=== PATIENT | male | born 1980 | race Caucasian/White ===

== ENCOUNTER 2023-07-11 14:01 | Emergency (ER) | payer OTHER, SELFPAY ==
[2023-07-11 14:04] VITALS: BP 146/99; PULSE 83; RESP 18; TEMP 36.8; O2SAT 99; BMI 25.4
--- NOTE | 2023-07-11 14:26 | ED.WOUNDLAC1 ---
HPI - Wound/Laceration General Chief Complaint: Wound/Laceration Stated Complaint: Laceration Time Seen by Provider: 07/11/23 14:06 Source: patient Mode of arrival: walk-in Limitations: no limitations History of Present Illness HPI narrative: 43-year-old male presents for chief complaint of laceration to his right thumb. It was sustained just before coming into the emergency Department on a sharp piece of metal. His last tetanus shot was about a year ago. No other wounds were sustained. There was some bleeding that was controlled with pressure. Related Data Allergies Allergy/AdvReac Type Severity Reaction Status Date / Time diphenhydramine AdvReac Intermediate Verified 07/11/23 14:04 [From Benadryl] naproxen [From Naprosyn] AdvReac Intermediate Verified 07/11/23 14:04 Review of Systems ROS Narrative A ten point review of systems is negative except as noted above. PFSH PFSH Social History Smoking status: Current every day smoker Exam Narrative Exam Narrative: Nurses note and vital signs reviewed and patient is not hypoxic. General: The patient appears well and in no apparent distress. Patient is resting comfortably on cart. Skin: Warm, dry, no pallor noted. There is no rash noted. Head: Normocephalic, atraumatic Eye: Normal conjunctiva, no drainage Ears, Nose, Mouth, and Throat: oral mucosa is moist. Nares patent. Cardiovascular: Regular Rate and Rhythm Respiratory: Patient is in no distress, no accessory muscle use, lungs are clear to auscultation, no wheezing, rales or rhonchi Back: non-tender GI: soft and nontender Musculoskeletal: the right thumb is examined. On the ulnar side at the IP crease is a superficial nonbleeding 1 cm laceration. IP joint has full range of motion and no other wounds are present. Neurological: A&O, normal speech Psychiatric: Cooperative Constitutional Vital Signs, click to edit/add: Last Vital Signs Temp 98.2 F 07/11/23 14:04 Pulse 83 07/11/23 14:04 Resp 18 07/11/23 14:04 BP 146/99 H 07/11/23 14:04 Pulse Ox 99 07/11/23 14:04 O2 Del Method Room Air 07/11/23 14:04 Course Vital Signs Vital signs: Vital Signs Temperature 98.2 F 07/11/23 14:04 Pulse Rate 83 11/18/23 14:04 Respiratory Rate 18 07/11/23 14:04 Blood Pressure 146/99 H 07/11/23 14:04 Pulse Oximetry 99 07/11/23 14:04 Oxygen Delivery Method Room Air 07/11/23 14:04 Temperature 98.2 F 07/11/23 14:04 Pulse Rate 83 07/11/23 14:04 Respiratory Rate 18 07/11/23 14:04 Blood Pressure 146/99 H 07/11/23 14:04 Pulse Oximetry 99 07/11/23 14:04 Oxygen Delivery Method Room Air 07/11/23 14:04 MDM - Wound/Laceration MDM Narrative Medical decision making narrative: sutures are not indicated. Tetanus is up-to-date. Steri-Strips applied as well as a splint. Splint application checked by me and found be appropriate, he is neurovascularly intact. Differential Diagnosis Differential diagnosis: Likely laceration and avulsion of skin Discharge Plan Discharge Chief Complaint: Wound/Laceration Clinical Impression: Laceration Patient Disposition: Home, Self-Care Time of Disposition Decision: 14:25 Condition: Good Mode of Transportation: Private Vehicle Instructions: Steristrips (ED) Additional Instructions: Do not get Steri-Strips wet and leave splint on for seven days. Stand Alone Forms: Portal Instructions
== END 2023-07-11 14:31 | disposition home or self-care (01) ==
PROVIDERS: Emergency Provider Emergency Medicine
DX: S61.011A Laceration without foreign body of right thumb without damage to nail, initial encounter (principal); W26.9XXA Contact with unspecified sharp object(s), initial encounter; W45.8XXA Other foreign body or object entering through skin, initial encounter; F17.210 Nicotine dependence, cigarettes, uncomplicated
CPT/HCPCS: 99283

== ENCOUNTER 2023-07-25 21:19 | Emergency (ER) | payer OTHER, SELFPAY ==
[2023-07-25 21:37] VITALS: BP 138/88; PULSE 95; RESP 16; TEMP 36.7; O2SAT 96; BMI 27.3
--- NOTE | 2023-07-25 22:08 | XR_ITS ---
[facility] [place] [facility] [id number] Patient Name: TRIPP WALKER MRN: [id number] date: 1980 Sex: M Assigned Patient Location: ER Current Patient Location: ER Accession/Order Number: [id number] Exam Date: 07/25/2023 22:10 Report Date: 07/25/2023 22:29 At the request of: AMRIK MARTINEZ Procedure: XR hand LT min 3V EXAM: XR hand LT min 3V TECHNIQUE: AP, lateral and oblique views left hand HISTORY: dog bite thumb COMPARISON: None. FINDINGS: No fracture or dislocation. Soft tissues are unremarkable. No arthritic changes. No radiopaque foreign body. XR/XR hand LT min 3V IMPRESSION: No acute findings Electronically authenticated by: BRITTANY BURT Date: 07/25/2023 22:29
--- NOTE | 2023-07-25 22:17 | ED.WOUNDLAC1 ---
HPI - Wound/Laceration General Chief Complaint: Wound/Laceration Stated Complaint: Wound/Laceration Time Seen by Provider: 07/25/23 22:08 Mode of arrival: walk-in History of Present Illness HPI narrative: has new puppy. bitten on his left thumb tonight. States puppy was frightened. No weakness or numbness of his thumb Related Data Home Medications Medication Instructions Recorded Confirmed No Known Home Medications 07/25/23 07/25/23 Allergies Allergy/AdvReac Type Severity Reaction Status Date / Time diphenhydramine AdvReac Intermediate Verified 07/25/23 21:42 [From Benadryl] naproxen [From Naprosyn] AdvReac Intermediate Verified 07/25/23 21:42 Review of Systems ROS Status of ROS 10 or more systems reviewed and unremarkable except as noted in history and [facility] Social History Smoking status: Current every day smoker Exam Constitutional Vital Signs, click to edit/add: Last Vital Signs Temp 98.0 F 07/25/23 21:37 Pulse 95 H 07/25/23 21:37 Resp 16 07/25/23 21:37 BP 138/88 07/25/23 21:37 Pulse Ox 96 07/25/23 21:37 O2 Del Method Room Air 07/25/23 21:37 Common normals: no apparent distress, average body habitus, oriented x3, no limitations and healthy appearing Eye Common normals: EOMs intact bilaterally and conjunctivae normal Respiratory Common normals: normal respiratory effort, no retractions and no use of accessory muscles Cardio Common normals: regular rate, regular rhythm, S1 normal heart sound and S2 normal heart sound GI Common normals: Normal to inspection, nondistended, normoactive bowel sounds present, soft to palpation and non-tender Extremity Other: several small puncture wounds left thumb. volar lac with exposure small amount of fat. FROM of the thumb Neuro Common normals: oriented x3, CN's II-XII intact bilaterally, moves all extremities, no focal motor deficits and no sensory deficits noted Psych Appearance: grossly normal Course Vital Signs Vital signs: Vital Signs Temperature 98.0 F 07/25/23 21:37 Pulse Rate 95 H 07/25/23 21:37 Respiratory Rate 16 07/25/23 21:37 Blood Pressure 138/88 07/25/23 21:37 Pulse Oximetry 96 07/25/23 21:37 Oxygen Delivery Method Room Air 07/25/23 21:37 Temperature 98.0 F 07/25/23 21:37 Pulse Rate 95 H 07/25/23 21:37 Respiratory Rate 16 07/25/23 21:37 Blood Pressure 138/88 07/25/23 21:37 Pulse Oximetry 96 07/25/23 21:37 Oxygen Delivery Method Room Air 07/25/23 21:37 MDM - Wound/Laceration MDM Narrative Medical decision making narrative: presents with dog bite left thumb. multiple punctures dorsum of thumb that do not require repair and lac fat pad repaired as above. Imaging Data Chest x-ray: Radiologist's impression: : [facility]:[id number] date: 1980 Sex: M Assigned Patient Location: ER Current Patient Location: ER Accession/Order Number: [id number] Exam Date: 07/25/2023 22:10 Report Date: 07/25/2023 22:29 At the request of: AMRIK MARTINEZ Procedure: XR hand LT min 3V EXAM: XR hand LT min 3V TECHNIQUE: AP, lateral and oblique views left hand HISTORY: dog bite thumb COMPARISON: None. FINDINGS: No fracture or dislocation. Soft tissues are unremarkable. No arthritic changes. No radiopaque foreign body. Discharge Plan Discharge Chief Complaint: Wound/Laceration Clinical Impression: Dog bite of left thumb Patient Disposition: Home, Self-Care Prescriptions / Home Meds: No Action No Known Home Medications Instructions: Animal Bite (ED) Additional Instructions: have wound rechecked in 2-3 days and stitches removed in 10 Stand Alone Forms: Portal Instructions Referrals: Physician,Non-Staff, MD [Primary Care Provider] - 1 week Procedures ED Procedure Instructions Procedures Procedures: laceration fat pad left thumb. 1.8cm lac. Fat exposed. xray neg for bony involvement. 1% lido without epi. site cleaned with betadine and rinsed with saline. Closed with # 3 3.0 nylon stitches. No complication
[2023-07-25] MEDS: LIDOCAINE HCL 1% 100 MG/10 ML MDV 5 ML INJ (23:00)
[2023-07-25] MEDS: AMOXICILLIN/POTASSIUM CLAV 1 TAB TABLET 2 TAB PO (23:15)
[2023-07-25] MEDS: BACITRACIN 0.9 GM PACKET 1 PACKET TOPICAL (23:24)
== END 2023-07-25 23:26 | disposition home or self-care (01) ==
PROVIDERS: Emergency Provider Internal Medicine
DX: S61.052A Open bite of left thumb without damage to nail, initial encounter (principal); W54.0XXA Bitten by dog, initial encounter; F17.210 Nicotine dependence, cigarettes, uncomplicated
CPT/HCPCS: 12001; 73130; 99283

== ENCOUNTER 2023-11-30 18:12 | Emergency (ER) | payer OTHER, MEDICAID, SELFPAY ==
[2023-11-30 18:17] VITALS: BP 152/95; PULSE 109; TEMP 36.6; O2SAT 95; BMI 29.6
--- NOTE | 2023-11-30 18:23 | XR_ITS ---
[address] [address] Patient Name: TRIPP WALKER MRN: [id number] date: 1980 Sex: M Assigned Patient Location: ER Current Patient Location: ED.MAIN Accession/Order Number: [id number] Exam Date: 11/30/2023 18:32 Report Date: 11/30/2023 18:54 At the request of: ARCELIA REED Procedure: XR hand RT min 3V STUDY: XR hand RT min 3V, [id number] HISTORY: injury COMPARISON: None FINDINGS: No acute fracture, dislocation, or suspicious osseous lesion. No significant degenerative changes. No radiopaque foreign body. XR/XR hand RT min 3V IMPRESSION: No acute osseous abnormality. Electronically authenticated by: FRITZ ODOM Date: 11/30/2023 18:54
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
[2023-11-30] MEDS: BACITRACIN 0.9 GM PACKET 1 PACKET TOPICAL (18:41)
[2023-11-30] MEDS: LIDOCAINE HCL 1% 100 MG/10 ML MDV INJ (18:42)
== END 2023-11-30 19:15 | disposition home or self-care (01) ==
PROVIDERS: Emergency Provider Emergency Medicine
DX: S61.212A Laceration without foreign body of right middle finger without damage to nail, initial encounter (principal); W22.8XXA Striking against or struck by other objects, initial encounter; F17.210 Nicotine dependence, cigarettes, uncomplicated
CPT/HCPCS: 12001; 73130; 99284

== ENCOUNTER 2024-03-07 07:06 | Outpatient (OUT) | payer OTHER, MEDICAID, SELFPAY | END 2024-03-07 07:07 | disposition home or self-care (01) | LOC: SLEEP 07:06 | DX: G47.33 Obstructive sleep apnea (adult) (pediatric) (principal) | CPT/HCPCS: 95810 ==

== ENCOUNTER 2024-12-07 20:58 | Emergency (ER) | payer OTHER, MEDICAID, SELFPAY ==
[2024-12-07 21:05] VITALS: BP 165/96; PULSE 101; TEMP 36.8; O2SAT 96; BMI 28.9
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
--- NOTE | 2024-12-07 23:24 | ED.SKABFB1 ---
HPI - Skin/Abscess/Foreign Bdy General Chief complaint: Skin/Abscess/Foreign Body Stated complaint: LUMP IN ARMPIT Time Seen by Provider: 12/07/24 21:03 Source: patient Mode of arrival: walk-in Limitations: no limitations History of Present Illness HPI narrative: This 44-year-old male presents for evaluation of a painful lump in his right axilla that he noticed today. 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 No additional injuries or complaints. Related Data Home Medications ?Medication ?Instructions ?Recorded ?Confirmed No Known Home Medications 07/25/23 07/25/23 Allergies Allergy/AdvReac Type Severity Reaction Status Date / Time diphenhydramine (From AdvReac Intermediate Verified 07/25/23 21:42 Benadryl) naproxen (From Naprosyn) AdvReac Intermediate Verified 07/25/23 21:42 Review of Systems ROS Status of ROS 10 or more systems reviewed and unremarkable except as noted in history and below PFSH PFS Social History Smoking status: Current every day smoker Little interest or pleasure in doing things: not at all Feeling down, depressed, or hopeless: not at all Exam Narrative Exam Narrative: Vital signs and Nursing Notes reviewed: Patient is afebrile, he is mildly tachycardic with a pulse of 101 and blood pressure is elevated 165/96, he is not hypoxic with pulse ox of 96% on room air General: Awake, alert, oriented, no acute distress, lying comfortably on the stretcher HEENT: Normocephalic atraumatic, mucous membranes are moist and pink, eyes are clear, normal conjunctiva, vision is grossly intact Neck: Supple Chest: Lungs are clear to auscultation with good air entry, there is no wheezing rhonchi or rales appreciated no accessory muscle use, patient is speaking in complete sentences-no chest wall tenderness to palpation CVS: Regular rate and rhythm S1-S2, no murmurs rubs or gallops, pulses are brisk and equal bilaterally ABD: Soft, nondistended, nontender, no rebound guarding or rigidity, bowel sounds are normal, no pulsatile masses appreciated Extremities: Moving all extremities, there is an approximately 1.5 x 1.5 cm firm, mildly tender nodule in the right axilla consistent with either a developing folliculitis or lymph node, there is no skin rash, fluctuance or drainage noted Skin: Normal in appearance without rash,pallor, petechiae or purpura Neuro: No focal deficits Constitutional Vital Signs, click to edit/add: Last Vital Signs Temp 98.3 F 12/07/24 21:05 Pulse 101 H 12/07/24 21:05 Resp 18 12/07/24 21:05 BP 165/96 H 12/07/24 21:05 Pulse Ox 96 12/07/24 21:05 O2 Del Method Room Air 12/07/24 21:05 Course Vital Signs Vital signs: Vital Signs Temperature 98.3 F 12/07/24 21:05 Pulse Rate 101 H 12/07/24 21:05 Respiratory Rate 18 12/07/24 21:05 Blood Pressure 165/96 H 12/07/24 21:05 Pulse Oximetry 96 12/07/24 21:05 Oxygen Delivery Method Room Air 12/07/24 21:05 Temperature 98.3 F 12/07/24 21:05 Pulse Rate 101 H 12/07/24 21:05 Respiratory Rate 18 12/07/24 21:05 Blood Pressure 165/96 H 12/07/24 21:05 Pulse Oximetry 96 12/07/24 21:05 Oxygen Delivery Method Room Air 12/07/24 21:05 MDM - Skin/Abscess/Foreign Bdy MDM Narrative Medical decision making narrative: This 44-year-old male presents for evaluation of a tender nodule in his right axilla that started today. 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 He has an approximately 1.5 cm firm, mildly tender nodule in his right axilla consistent with a developing folliculitis or inflamed lymph node. I explained him it is unclear at this time which it is since he just darted today. There is no fluctuance or indication for incision and drainage. There is no local cellulitis. He will be medicated with a dose of Keflex and ibuprofen for his discomfort and discharged home with prescriptions for the same. I encouraged him to use warm compresses in this area and return to the emergency department as needed if it becomes bigger or fluctuant amenable to drainage. Discharge Plan Discharge Chief Complaint: Skin/Abscess/Foreign Body Clinical Impression: Folliculitis of right axilla Patient Disposition: Home, Self-Care Time of Disposition Decision: 23:23 Condition: Good Prescriptions / Home Meds: No Action No Known Home Medications Print Language: Arabic Instructions: Folliculitis (ED) Referrals: Physician,Non-Staff, MD [Primary Care Provider] - 1 week
[2024-12-07] MEDS: IBUPROFEN 600 MG TABLET PO (23:44)
[2024-12-07] MEDS: CEPHALEXIN 500 MG CAPSULE PO (23:45)
== END 2024-12-07 23:49 | disposition home or self-care (01) ==
PROVIDERS: Emergency Provider Emergency Medicine
DX: L73.9 Follicular disorder, unspecified (principal); F17.200 Nicotine dependence, unspecified, uncomplicated
CPT/HCPCS: 99283